=== PATIENT | male | born 1950 | race Caucasian/White ===

== ENCOUNTER 2020-08-21 07:54 | Day surgery (SDC) | payer MEDICARE, BC ==
[~2020-08-21] VITALS: Ht 177.8 cm; Wt 99.1 kg
[~2020-08-21 07:54] MED LIST: ATOR80 PO; Aspirin EC81 MG; CAPT25 PO; FAMO20 PO; Fiber Tabs625 MG PO; NAPR250 PO; PRESERVISION A1 EACH PO; SIMV10 PO
[2020-08-21] MEDS ORDERED: CLOP75 PO (08:17)
--- NOTE | 2020-08-21 09:45 | NUR ---
PT BACK TO RECOVERY ROOM VIA RECLINER POST PROCEDURE. PT WILL BE REFERED FOR BYPASS SURGERY. DENIES ANY PAIN OR DISCOMFORT. VSS. CALL LIGHT IN REACH.
--- NOTE | 2020-08-21 10:33 | NUR ---
PT EATING BREAKFAST, DENIES PAIN OR NEEDS. VSS. RIGHT RADIAL SITE SOFT AND NON-TENDER. NO BLEEDING OR SWELLING NOTED.
[2020-08-21] MEDS ORDERED: Isosorbide Mono30 MG PO (10:52)
--- NOTE | 2020-08-21 11:04 | NUR ---
NEW RX FOR IMDUR CALLED INTO [facility] PER PT REQUEST
--- NOTE | 2020-08-21 11:33 | NUR ---
RIGHT RADIAL TR BAND HAS BEEN FULLY DEFLATED WITHOUT ANY BLEEDING OR SWELLING TO SITE. VSS, WILL CONTINUE TO MONITOR SITE UNTIL DC HOME.
--- NOTE | 2020-08-21 12:04 | NUR ---
IV DC'D, CATH INTACT. PT GIVEN DC INSTRUCTIONS, VERBALIZED UNDERSTANDING. RIGHT RADIAL SITE STABLE, SOFT AT TIME OF DISCHARGE. PT OUT TO CAR VIA WHEELCHAIR.
== END 2020-08-21 12:02 | disposition home or self-care (01) ==
LOC: MHTC 07:54
PROC: B2111ZZ Fluoroscopy of Multiple Coronary Arteries using Low Osmolar Contrast (ICD-10-PCS; principal; 2020-08-21)
PROC: 4A023N7 Measurement of Cardiac Sampling and Pressure, Left Heart, Percutaneous Approach (ICD-10-PCS; principal; 2020-08-21)
DX: I25.118 Atherosclerotic heart disease of native coronary artery with other forms of angina pectoris (principal); I11.0 Hypertensive heart disease with heart failure; I50.9 Heart failure, unspecified; E78.5 Hyperlipidemia, unspecified; E66.9 Obesity, unspecified; E78.00 Pure hypercholesterolemia, unspecified; E11.42 Type 2 diabetes mellitus with diabetic polyneuropathy; E55.9 Vitamin D deficiency, unspecified; K21.9 Gastro-esophageal reflux disease without esophagitis; Z68.31 Body mass index [BMI] 31.0-31.9, adult; Z91.041 Radiographic dye allergy status; Z79.82 Long term (current) use of aspirin; Z79.899 Other long term (current) drug therapy; Z87.891 Personal history of nicotine dependence
CPT/HCPCS: 93458; 99152; 99153; C1769; C1894; J1200; J1644; J1720; J2250; J3010; J7030; J7050; Q9967

== ENCOUNTER 2021-05-21 12:42 | Day surgery (SDC) | payer MEDICARE, BC ==
[~2021-05-21] VITALS: Ht 177.8 cm; Wt 94.4 kg
[~2021-05-21 12:42] MED LIST changes: +CLOP75 PO; +Isosorbide Mono30 MG PO
[2021-05-21] MEDS ORDERED: FIBER500 MG (13:11)
[2021-05-21] MEDS ORDERED: VIT1CAPS12 (13:11)
[2021-05-21] MEDS ORDERED: ELIQUIS5 M2 (13:12)
[2021-05-21] MEDS ORDERED: Lisinopril2.5 MG (13:13)
== END 2021-05-21 14:23 | disposition home or self-care (01) ==
LOC: ORSCSDS 12:42
PROVIDERS: Internal Medicine Gastroenterology
PROC: 0DJD8ZZ Inspection of Lower Intestinal Tract, Via Natural or Artificial Opening Endoscopic (ICD-10-PCS; principal; 2021-05-21 14:15)
DX: Z12.11 Encounter for screening for malignant neoplasm of colon (principal); Z86.010 Personal history of colon polyps; K62.1 Rectal polyp; E66.9 Obesity, unspecified; Z68.30 Body mass index [BMI] 30.0-30.9, adult; Z79.899 Other long term (current) drug therapy
CPT/HCPCS: 82947; 88305; J2704; J7120

== ENCOUNTER 2024-09-23 08:48 | Observation (INO) | payer MEDICARE, BC ==
[~2024-09-23] VITALS: Ht 177.8 cm; Wt 94.5 kg
[~2024-09-23 08:48] MED LIST changes: +ELIQUIS5 M2 PO; +FIBER500 MG; +Lisinopril2.5 MG; +PRESERVISION A1 EAC1 PO; -PRESERVISION A1 EACH PO; +VIT1CAPS12
[2024-09-23] MEDS ORDERED: Prinivil10 MG PO (09:17)
[2024-09-23] MEDS ORDERED: ATOR80 PO (09:18)
[2024-09-23] MEDS ORDERED: Pantoprazole Sodium 40 MG Tab PO ONE (09:25)
[2024-09-23 09:37] LABS: BASOPHILS ABSOLUTE AUTO 0.08 K/mm3 (0.00-0.23); BASOPHILS PERCENT AUTO 1 % (0-2); EOSINOPHILS ABSOLUTE AUTO 0.21 K/mm3 (0.00-0.68); EOSINOPHILS PERCENT AUTO 3 % (0-6); Hematocrit 46.9 % (37.0-53.0); Hemoglobin 16.1 g/dL (13.5-17.5); IMMATURE GRAN ABSOLUTE AUTO 0.05 K/mm3 (0.00-0.10); IMMATURE GRAN PERCENT AUTO 1 % (0-1); LYMPHOCYTES ABSOLUTE AUTO 2.98 K/mm3 (0.84-5.20); LYMPHOCYTES PERCENT AUTO 36 % (21-46); MONOCYTES ABSOLUTE AUTO 0.63 K/mm3 (0.16-1.47); MONOCYTES PERCENT AUTO 8 % (4-13); Mean Corpuscular HGB 32.3 pg (26.0-34.0); Mean Corpuscular HGB Conc 34.3 g/dL (31.5-36.5); Mean Corpuscular Volume 94 fL (80-100); NEUTROPHILS ABSOLUTE AUTO 4.27 K/mm3 (1.96-9.15); NEUTROPHILS PERCENT AUTO 52 % (41-73); Platelet Count 270 K/mm3 (150-400); RDW Coefficient Variation 12.2 % (11.7-14.2); RDW Standard Deviation 42.2 fL (35.1-46.3); Red Blood Cell Count 4.98 M/mm3 (4.30-5.90); White Blood Cell Count 8.22 K/mm3 (4.00-11.30)
[2024-09-23 09:49] LABS: Albumin, Blood 3.9 g/dL (3.4-5.0); Albumin/Globulin Ratio 1.2 (0.8-1.8); Bilirubin, Total 0.8 mg/dL (0.1-1.0); Bun/Creatinine Ratio 21.6 (12.0-20.0); Calcium, Blood 9.5 mg/dL (8.5-10.1); Creatinine, Blood 0.92 mg/dL (0.60-1.20); Globulin, Blood 3.3 g/dL (2.2-4.0); Potassium, Blood 4.5 mmol/L (3.5-5.5); Total Protein, Blood 7.2 g/dL (6.4-8.2)
[2024-09-23] MEDS ORDERED: Aspirin 325 MG Tab PO ONE (10:10)
[2024-09-23] MEDS ORDERED: FLU VACC TS2024-25(6MOS UP)/PF 45 MCG/0.5 ML SYRINGE IM SCH (12:20)
[2024-09-23 14:26] VITALS: BP 144/67
[2024-09-23] MEDS ORDERED: POLY500 PO (15:41)
[2024-09-23] MEDS ORDERED: VITAMIN B-122000 MC1 PO (15:42)
--- NOTE | 2024-09-23 17:13 | NUR ---
SUMMARY- PT A/O X4. INDEPENDANT IN ROOM, AMBULATES IN HALLWAY. DENIES CHEST PAIN THE ENTIRE SHIFT. AWARE HE NEEDS TO CALL FOR CHEST PAIN IF IT SHOULD REOCCUR. TELE RATE SR-SB 40-60. ASYMPTOMATIC DENIES ANY DIZZINESS OR CHEST PAIN. DR SAAVEDRA AWARE OF THE SLOW HEART RATE. AWAITING STRESS TEST IN THE AM. PT WILL HAVE DINNER AND NPO AFTER MIDNIGHT. WILL REPORT TO NOC RN
[2024-09-23 19:04] VITALS: BP 124/75
[2024-09-23] MEDS ORDERED: Famotidine 20 MG Tab PO SCH (21:00)
[2024-09-23] MEDS ORDERED: Apixaban 5 MG Tab PO SCH (21:00)
[2024-09-24 00:35] VITALS: BP 90/45
[2024-09-24 06:04] LABS: BASOPHILS ABSOLUTE AUTO 0.07 K/mm3 (0.00-0.23); BASOPHILS PERCENT AUTO 1 % (0-2); EOSINOPHILS ABSOLUTE AUTO 0.25 K/mm3 (0.00-0.68); EOSINOPHILS PERCENT AUTO 4 % (0-6); Hematocrit 46.5 % (37.0-53.0); Hemoglobin 16.1 g/dL (13.5-17.5); IMMATURE GRAN ABSOLUTE AUTO 0.02 K/mm3 (0.00-0.10); IMMATURE GRAN PERCENT AUTO 0 % (0-1); LYMPHOCYTES ABSOLUTE AUTO 2.62 K/mm3 (0.84-5.20); LYMPHOCYTES PERCENT AUTO 37 % (21-46); MONOCYTES ABSOLUTE AUTO 0.61 K/mm3 (0.16-1.47); MONOCYTES PERCENT AUTO 9 % (4-13); Mean Corpuscular HGB 32.1 pg (26.0-34.0); Mean Corpuscular HGB Conc 34.6 g/dL (31.5-36.5); Mean Corpuscular Volume 93 fL (80-100); Mean Platelet Volume 10.3 fL (9.1-12.4); NEUTROPHILS ABSOLUTE AUTO 3.54 K/mm3 (1.96-9.15); NEUTROPHILS PERCENT AUTO 50 % (41-73); Platelet Count 245 K/mm3 (150-400); RDW Coefficient Variation 12.2 % (11.7-14.2); RDW Standard Deviation 41.3 fL (35.1-46.3); Red Blood Cell Count 5.02 M/mm3 (4.30-5.90); White Blood Cell Count 7.11 K/mm3 (4.00-11.30)
[2024-09-24 06:38] LABS: Albumin, Blood 3.5 g/dL (3.4-5.0); Albumin/Globulin Ratio 1.1 (0.8-1.8); Bilirubin, Total 0.7 mg/dL (0.1-1.0); Bun/Creatinine Ratio 18.8 (12.0-20.0); Calcium, Blood 9.1 mg/dL (8.5-10.1); Creatinine, Blood 0.8 mg/dL (0.60-1.20); Globulin, Blood 3.2 g/dL (2.2-4.0); Magnesium, Blood 2.4 mg/dL (1.6-2.4); Phosphorus, Blood 3.1 mg/dL (2.5-4.9); Potassium, Blood 4.5 mmol/L (3.5-5.5); Total Protein, Blood 6.7 g/dL (6.4-8.2)
[2024-09-24 07:16] VITALS: BP 136/77
[2024-09-24] MEDS ORDERED: Lisinopril 10 MG Tab PO SCH (09:00)
[2024-09-24] MEDS ORDERED: Atorvastatin 10 MG Tab PO SCH (09:00)
[2024-09-24] MEDS ORDERED: Enoxaparin 40 MG/0.4 ML SYR SC SCH (09:00)
--- NOTE | 2024-09-24 10:38 | NUR ---
INFORMED BY SERGEY FROM RADIOLOGY THAT STRESS TEST ORDER HAD BEEN CANCELLED ON THE COMPUTER AND NEEDS TO BE RE-ORDERED. CALLED DR. SAAVEDRA AND LEFT A MESSAGE REQUESTING A NEW ORDER. WILL FOLLOW UP IF NO NEW ORDER IS PLACED.
[2024-09-24 13:31] VITALS: BP 121/76
[2024-09-24] MEDS ORDERED: Regadenoson 0.4 MG/5 ML SYRINGE ONE (14:33)
--- NOTE | 2024-09-24 17:41 | NUR ---
DISCHARGE NOTE A/OX4, ABLE TO MAKE NEEDS KNOWN. IV REMOVED AND TELEMETRY REMOVED PRIOR TO DISCHARGE. EDUCATION PROVIDED REGARDING FOLLOW UP APPOINTMENTS AND PRESCRIPTION CHANGES. SPOUSE AT BEDSIDE DURING DISCHARGE INSTRUCTIONS. PATIENT AND SPOUSE WITH NO QUESTIONS OR CONCERNS AT TIME OF DISCHARGE. STRESS TEST COMPLETED TODAY AND RESULTS DISCUSSED WITH PATIENT. PATIENT DENIED NEED FOR WHEELCHAIR ASSISTANCE OUT OF FACILTIY HE HAS BEEN WALKING THE HALLWAYS INDEPENDENTLY THIS SHIFT. PATIENT AMBULATED TO FAMILY VEHICLE FOR DISCHARGE WITH SPOUSE AND ALL BELONGINGS IN HAND.
== END 2024-09-24 18:46 | disposition home or self-care (01) ==
LOC: ER 08:48 → MEDS 08:49 → ER 12:16 → MEDS 14:23
PROVIDERS: Emergency Medicine; ADMIT Family Medicine
DX: R07.89 Other chest pain (principal); R79.89 Other specified abnormal findings of blood chemistry; I25.10 Atherosclerotic heart disease of native coronary artery without angina pectoris; I11.9 Hypertensive heart disease without heart failure; E78.5 Hyperlipidemia, unspecified; I36.1 Nonrheumatic tricuspid (valve) insufficiency; I34.0 Nonrheumatic mitral (valve) insufficiency; I48.91 Unspecified atrial fibrillation; Z95.1 Presence of aortocoronary bypass graft; Z79.01 Long term (current) use of anticoagulants; Z79.899 Other long term (current) drug therapy; Z91.041 Radiographic dye allergy status; Z88.8 Allergy status to other drugs, medicaments and biological substances
CPT/HCPCS: 36415; 71046; 78452; 80053; 82330; 83690; 83735; 84100; 84484; 85025; 93005; 93010; 93017; 99285-25; A9270; A9500; C8929; G0378; J2785; Q9957